=== PATIENT | male | born 1980 | race Caucasian/White ===

== ENCOUNTER 2020-02-10 18:13 | Emergency (ER) | payer BC, OTHER ==
[~2020-02-10] VITALS: Ht 182.9 cm; Wt 87.5 kg
[2020-02-10] MEDS ORDERED: BOOSTRIX/ADACEL VACCINE (DIPHTH/PERTUSS/ACELL/TETANUS) 0.5ML SYR IM ONE (19:30)
--- NOTE | 2020-02-10 20:06 | REP ---
INDICATION: r/o fb with marker please COMPARISON: None. TECHNIQUE: AP, lateral views of the left hand FINDINGS: The osseous structures and joint spaces are intact and normal. There is no evidence for acute fracture or dislocation. Surrounding soft tissues are unremarkable. No subcutaneous emphysema or radiodense foreign body. IMPRESSION: No foreign body. <Electronically signed by Placido Maldonado > 02/10/202002
[2020-02-10 20:34] VITALS: BP 140/88
== END 2020-02-10 20:35 | disposition home or self-care (01) ==
LOC: M ED 18:13
DX: S61.412A Laceration without foreign body of left hand, initial encounter (principal); W01.110A Fall on same level from slipping, tripping and stumbling with subsequent striking against sharp glass, initial encounter; Y92.89 Other specified places as the place of occurrence of the external cause; Y93.89 Activity, other specified; Y99.0 Civilian activity done for income or pay